=== PATIENT | female | born 1970 | race Native Hawaiian/Other Pacific Islander ===

== ENCOUNTER 2019-09-28 09:55 | Outpatient (CLI) | payer BC | END 2019-09-28 21:40 | disposition home or self-care (01) | LOC: RAD 09:55 | DX: J20.8 Acute bronchitis due to other specified organisms (principal) ==

== ENCOUNTER 2020-10-09 11:15 | Outpatient (CLI) | payer BC, OTHER ==
[2020-10-09 12:02] LABS: POTASSIUM 4.1 mmol/L (3.6-5.2); SODIUM 141 mmol/L (136-145)
== END 2020-10-09 20:56 | disposition home or self-care (01) ==
LOC: LABW 11:15
PROVIDERS: ATTEND Nurse Practitioner Family
DX: U07.1 COVID-19 (principal); R07.89 Other chest pain
CPT/HCPCS: 36415; 80053; 82550; 82553; 84484; 93005